=== PATIENT | female | born 1980 | race Hispanic/Latino ===

== ENCOUNTER 2017-12-28 08:24 | Emergency (ER) | payer MEDICAID ==
[~2017-12-28 08:24] MED LIST: APIX5TAB PO
[2017-12-28] MEDS ORDERED: LIDOCAINE HCL 1% 20 ML VIAL ONE (08:48)
== END 2017-12-28 09:50 | disposition home or self-care (01) ==
LOC: EDH 08:24
DX: L02.31 Cutaneous abscess of buttock (principal); Z85.3 Personal history of malignant neoplasm of breast
CPT/HCPCS: 10060; 81025

== ENCOUNTER 2018-01-04 09:28 | Emergency (ER) | payer MEDICAID ==
[2018-01-04] MEDS ORDERED: KETOROLAC TROMETHAMINE 60 MG/2 ML VIAL ONE (10:38)
== END 2018-01-04 12:12 | disposition home or self-care (01) ==
LOC: EDH 09:28
DX: S29.012A Strain of muscle and tendon of back wall of thorax, initial encounter (principal); R00.2 Palpitations; F41.9 Anxiety disorder, unspecified; Z85.3 Personal history of malignant neoplasm of breast; X58.XXXA Exposure to other specified factors, initial encounter; Y93.89 Activity, other specified; Y92.89 Other specified places as the place of occurrence of the external cause; Y99.8 Other external cause status
CPT/HCPCS: 71045; 72070; 96372; 99284; J1885

== ENCOUNTER 2018-05-09 01:06 | Emergency (ER) | payer MEDICAID ==
[2018-05-09] MEDS ORDERED: DEXAMETHASONE SOD PHOSPHATE 10MG/ML 1ML VIAL ONE (01:21)
[2018-05-09] MEDS ORDERED: HYDROXYZINE HCL 25 MG TABLET ONE (01:21)
== END 2018-05-09 01:30 | disposition home or self-care (01) ==
LOC: EDH 01:06
DX: S60.862A Insect bite (nonvenomous) of left wrist, initial encounter (principal); Z85.3 Personal history of malignant neoplasm of breast; W57.XXXA Bitten or stung by nonvenomous insect and other nonvenomous arthropods, initial encounter; Y93.89 Activity, other specified; Y92.098 Other place in other non-institutional residence as the place of occurrence of the external cause; Y99.8 Other external cause status
CPT/HCPCS: 96372; 99283; J1100

== ENCOUNTER 2018-06-01 08:34 | Emergency (ER) | payer MEDICAID ==
[2018-06-01 09:30] LABS: BASOPHILS % (AUTO) 0.5 % (0.0-5.0); EOSINOPHILS % (AUTO) 3.6 % (0.0-8.0); HEMATOCRIT 33.9 % (36-48); LYMPHOCYTES % (AUTO) 38.9 % (21.0-51.0); MEAN CORPUSCULAR HEMOGLOBIN 28.8 pg (27.0-33.0); MEAN CORPUSCULAR HGB CONC 33.8 g/dL (32.0-36.0); MEAN CORPUSCULAR VOLUME 85.2 fL (79-99); MONOCYTES % (AUTO) 7.3 % (3.0-13.0); NEUTROPHILS % (AUTO) 49.7 % (40.0-77.0); PLATELET COUNT (AUTO) 282 K/uL (130-400); RED BLOOD CELL COUNT(AUTO) 3.97 MIL/uL (4.00-5.50); RED CELL DISTRIBUTION WIDTH 13.7 % (11.0-15.5); WHITE BLOOD COUNT (AUTO) 5.1 K/uL (4.8-10.8)
[2018-06-01 09:41] LABS: CARBON DIOXIDE 23 mmol/L (21-32); CHLORIDE 109 mmol/L (101-111); CREATININE 0.7 mg/dL (0.5-1.5); GLOMERULAR FILTR. RATE CALC 99 mL/min (>60); GLUCOSE,RANDOM 103 mg/dL (70-105); POTASSIUM 4.1 mmol/L (3.5-5.1); SODIUM SERUM 141 mmol/L (136-145); UREA NITROGEN, BLOOD 8 mg/dL (7-18)
[2018-06-01 09:44] LABS: INR 0.93 (0.85-1.15); PARTIAL THROMBOPLASTIN TIME 26.6 SEC (26.3-35.5); PROTHROMBIN TIME 9.8 SEC (9.6-11.6)
[2018-06-01 09:47] LABS: ALANINE AMINOTRANSFERASE 49 U/L (12-78); ASPARTATE AMINOTRANSFERASE 25 U/L (10-37); BILIRUBIN,DIRECT < 0.1 mg/dL (0.0-0.3); BILIRUBIN,TOTAL 0.1 mg/dL (0.2-1.0); CREATINE KINASE, TOTAL 58 U/L (21-232); TOTAL PROTEIN, SERUM 6.6 g/dL (6.0-8.3)
[2018-06-01] MEDS ORDERED: IOHEXOL-350 75 ML VIAL IV ONE (10:09)
[2018-06-01 10:27] LABS: B-TYPE NATRIURETIC PEPTIDE 17 pg/mL (0-100)
== END 2018-06-01 12:36 | disposition home or self-care (01) ==
LOC: EDH 08:34
DX: R07.89 Other chest pain (principal); R06.00 Dyspnea, unspecified; Z85.3 Personal history of malignant neoplasm of breast; Z79.899 Other long term (current) drug therapy
CPT/HCPCS: 36415; 71275; 80048; 80076; 82550; 83880; 84484; 85025; 85610; 85730; 93005; 99285; Q9967; 82948

== ENCOUNTER 2018-09-11 13:57 | Emergency (ER) | payer MEDICAID ==
[2018-09-11] MEDS ORDERED: SODIUM CHLORIDE 0.9% 1000ML 1,000 ML IV ONE (15:25)
[2018-09-11] MEDS ORDERED: ACETAMINOPHEN 325 MG TAB ONE (15:25)
[2018-09-11 15:32] LABS: BASOPHILS % (AUTO) 0.4 % (0.0-5.0); EOSINOPHILS % (AUTO) 0.9 % (0.0-8.0); HEMATOCRIT 38.1 % (36-48); LYMPHOCYTES % (AUTO) 10.2 % (21.0-51.0); MEAN CORPUSCULAR HEMOGLOBIN 27.9 pg (27.0-33.0); MEAN CORPUSCULAR HGB CONC 32.7 g/dL (32.0-36.0); MEAN CORPUSCULAR VOLUME 85.2 fL (79-99); MONOCYTES % (AUTO) 3.7 % (3.0-13.0); NEUTROPHILS % (AUTO) 84.8 % (40.0-77.0); PLATELET COUNT (AUTO) 286 K/uL (130-400); RED BLOOD CELL COUNT(AUTO) 4.47 MIL/uL (4.00-5.50); RED CELL DISTRIBUTION WIDTH 13.8 % (11.0-15.5); WHITE BLOOD COUNT (AUTO) 11.4 K/uL (4.8-10.8)
[2018-09-11 15:39] LABS: BILIRUBIN,URINE Negative (NEGATIVE); COLOR,URINE Yellow (YELLOW); GLUCOSE, URINE (UA) Negative (NEGATIVE); KETONES,URINE Negative (NEGATIVE); LEUKOCYTE ESTERASE ,URINE Trace (NEGATIVE); NITRATE,URINE Negative (NEGATIVE); OCCULT BLOOD,URINE Negative (NEGATIVE); PROTEIN,URINE Negative (NEGATIVE); UROBILINOGEN,URINE 0.2 mg/dL (0.2-1.0)
[2018-09-11 15:41] LABS: CREATININE 0.7 mg/dL (0.5-1.5)
[2018-09-11 15:42] LABS: INR 0.96 (0.85-1.15); PARTIAL THROMBOPLASTIN TIME 25.7 SEC (26.3-35.5); PROTHROMBIN TIME 10.1 SEC (9.6-11.6)
[2018-09-11 15:42] LABS: HCG,QUAL RESULT NEGATIVE (NEGATIVE)
[2018-09-11 15:46] LABS: ALBUMIN 3.6 g/dL (3.5-5.0); BILIRUBIN,TOTAL 0.3 mg/dL (0.2-1.0); TOTAL PROTEIN, SERUM 7.6 g/dL (6.0-8.3)
[2018-09-11 16:04] LABS: APPEARANCE,URINE SLIGHTLY CLOUDY (CLEAR)
[2018-09-11 16:05] LABS: AMORPHOUS SEDIMENT,UR Few /LPF (None Seen); BACTERIA,URINE Few /HPF (None Seen); RBC,URINE None Seen /HPF (0-1); WBC,URINE 0-1 /HPF (0-1)
[2018-09-11] MEDS ORDERED: KETOROLAC TROMETHAMINE 30MG/ML ONE (18:04)
== END 2018-09-11 18:19 | disposition home or self-care (01) ==
LOC: EDH 13:57
DX: N13.2 Hydronephrosis with renal and ureteral calculous obstruction (principal); Z85.3 Personal history of malignant neoplasm of breast; Z79.899 Other long term (current) drug therapy
CPT/HCPCS: 36415; 71045; 74176; 80053; 81001; 81025; 83605; 85025; 85610; 85730; 87804 ×2; 93005; 96374; 99284; J1885; J7030

== ENCOUNTER 2018-10-11 22:30 | Emergency (ER) | payer MEDICAID ==
[2018-10-11 23:26] LABS: MEAN CORPUSCULAR HEMOGLOBIN 27.7 pg (27.0-33.0)
[2018-10-11 23:29] LABS: CREATININE 0.8 mg/dL (0.5-1.5); INR 0.95 (0.85-1.15); PARTIAL THROMBOPLASTIN TIME 24.3 SEC (26.3-35.5); POTASSIUM 3.4 mmol/L (3.5-5.1)
[2018-10-11 23:34] LABS: ALBUMIN 3.7 g/dL (3.5-5.0); BILIRUBIN,TOTAL 0.2 mg/dL (0.2-1.0); TOTAL PROTEIN, SERUM 7.7 g/dL (6.0-8.3)
[2018-10-11 23:51] LABS: BASOPHILS % (AUTO) 0.4 % (0.0-5.0); EOSINOPHILS % (AUTO) 3.3 % (0.0-8.0); LYMPHOCYTES % (AUTO) 33.8 % (21.0-51.0); MEAN CORPUSCULAR HGB CONC 32.5 g/dL (32.0-36.0); MEAN CORPUSCULAR VOLUME 85.2 fL (79-99); MONOCYTES % (AUTO) 5.8 % (3.0-13.0); NEUTROPHILS % (AUTO) 56.7 % (40.0-77.0); PLATELET COUNT (AUTO) 306 K/uL (130-400); RED BLOOD CELL COUNT(AUTO) 4.23 MIL/uL (4.00-5.50); RED CELL DISTRIBUTION WIDTH 13.8 % (11.0-15.5); WHITE BLOOD COUNT (AUTO) 8.7 K/uL (4.8-10.8)
[2018-10-11] MEDS ORDERED: IPRATROPIUM/ALBUTEROL SULFATE 3 ML SOLUTION IH ONE (23:57)
[2018-10-12] MEDS ORDERED: PREDNISONE 20 MG TABLET ONE (00:36)
[2018-10-12] MEDS ORDERED: IPRATROPIUM/ALBUTEROL SULFATE 3 ML SOLUTION IH ONE (01:12)
== END 2018-10-12 01:36 | disposition home or self-care (01) ==
LOC: EDH 22:30
DX: J20.9 Acute bronchitis, unspecified (principal); E11.9 Type 2 diabetes mellitus without complications; Z85.3 Personal history of malignant neoplasm of breast; Z90.12 Acquired absence of left breast and nipple
CPT/HCPCS: 36415; 71045; 80053; 82550; 84484; 85025; 85610; 85730; 93005; 94640

== ENCOUNTER 2018-11-11 21:30 | Emergency (ER) | payer MEDICAID ==
[2018-11-11] MEDS ORDERED: METOCLOPRAMIDE 5 MG TABLET ONE (23:44)
[2018-11-11] MEDS ORDERED: DiphenhydrAMINE HCL 25 MG/10 ML ELIXIR UDCUP ONE (23:44)
[2018-11-12] MEDS ORDERED: ACETAMINOPHEN 325 MG TAB ONE (00:20)
== END 2018-11-12 00:27 | disposition home or self-care (01) ==
LOC: EDH 21:30
DX: H11.32 Conjunctival hemorrhage, left eye (principal); G43.909 Migraine, unspecified, not intractable, without status migrainosus; E11.9 Type 2 diabetes mellitus without complications; Z85.3 Personal history of malignant neoplasm of breast
CPT/HCPCS: 70450